=== PATIENT | female | born 1980 ===

== ENCOUNTER 2021-02-02 16:24 | Outpatient (REF) | payer BC, SELFPAY ==
[2021-02-05 14:44] LABS: IgA 291 mg/dL (85-499); Interpretation (See Note); Tissue Transglutaminase IgA 1.2 U/mL (<4.0)
== END 2021-02-02 16:25 | disposition home or self-care (01) ==
LOC: NCHCN 16:24
PROVIDERS: Visit Provider Internal Medicine
DX: Z88.9 Allergy status to unspecified drugs, medicaments and biological substances (principal)
CPT/HCPCS: 82784; 83516

== ENCOUNTER 2021-08-10 15:00 | Outpatient (REF) | payer BC, SELFPAY ==
--- NOTE | 2021-08-10 13:30 | PAPFT_PTH ---
PATIENT: Carmela Carpio LOC: [facility]#:[id number] AGE/SX: 40/F ROOM: RE08/10/[address]: Ludivina Cardoza : 1980 BED: DIS: 08/10/2021 SPEC #: [id number] RECD: 08/13/21 12:54 STATUS: RICHARDSON REQ #: [id number] MEAGHAN: 08/10/21 13:[address]: Ludivina Cardoza DEPT: [facility] Cytology RECD BY: Kailyn Isbell ENTERED: 08/13/21 12:54 SP TYPE: PAPFT OT DR: None Tissues: 1 - CX/ENDOCX FOR PAP SMEARS Procedures: PAP THIN PREP/[facility] Screening HPV DNA PROBE Comments: [id number]
== END 2021-08-10 15:01 | disposition home or self-care (01) ==
LOC: NCHCN 15:00
PROVIDERS: Visit Provider Family Medicine
DX: Z12.4 Encounter for screening for malignant neoplasm of cervix (principal); Z11.51 Encounter for screening for human papillomavirus (HPV)
CPT/HCPCS: 88142; 87624

== ENCOUNTER 2022-08-15 11:55 | Outpatient (REF) | payer BC, SELFPAY ==
[2022-08-15 14:33] LABS: HCT 41.7 % (36.0-46.0); HGB 13.7 g/dL (11.2-15.7); MCH 28.8 pg (27.0-33.0); MCHC 32.9 % (32.0-36.0); MCV 88 fL (80-95); MPV 11.8 fL (8.0-11.0); Platelet Count 248 10^3/uL (130-400); RBC 4.75 10^6/uL (3.93-5.22); RDW 12.3 % (11.7-14.6); RDW-SD 40.1 fL; WBC 8.25 10^3/uL (4.4-10.8)
[2022-08-15 14:53] LABS: Anion Gap 8.7 mmol/L (3-11); BUN 8 mg/dL (7-18); CO2 28.3 mmol/L (21.0-32.0); CREATININE 0.8 mg/dL (0.55-1.02); Calcium 9.6 mg/dL (8.5-10.1); Calculated LDL 94 mg/dL (<100); Chloride 102 mmol/L (98-107); Cholesterol 166 mg/dL (<200); Glucose 93 mg/dL (74-106); HDL Cholesterol 65 mg/dL (40-60); Sodium 139 mmol/L (136-145); Triglyceride 37 mg/dL (<150)
== END 2022-08-15 11:56 | disposition home or self-care (01) ==
LOC: NCHCN 11:55
PROVIDERS: Visit Provider Family Medicine
DX: D25.9 Leiomyoma of uterus, unspecified (principal); Z00.00 Encounter for general adult medical examination without abnormal findings
CPT/HCPCS: 80048; 80061; 85027

== ENCOUNTER 2025-01-11 16:29 | Outpatient (REF) | payer BC, SELFPAY ==
[2025-01-11 21:15] LABS: TSH (W/Ref FT4) 0.86 uIU/mL (0.36-3.74)
== END 2025-01-11 16:30 | disposition home or self-care (01) ==
LOC: NCHCN 16:29
PROVIDERS: Visit Provider Family Medicine
DX: R68.89 Other general symptoms and signs (principal)
CPT/HCPCS: 84443